=== PATIENT | male | born 1990 | race Caucasian/White ===

== ENCOUNTER 2021-07-04 12:46 | Emergency (ER) | payer SELFPAY ==
[2021-07-05 15:32] LABS: SARS-CoV-2 PCR by NAA Not Detected (NotDetected)
== END 2021-07-04 14:55 | disposition home or self-care (01) ==
LOC: CSHERS 12:46
DX: R05.9 Cough, unspecified (principal); Z20.822 Contact with and (suspected) exposure to COVID-19; F17.210 Nicotine dependence, cigarettes, uncomplicated
CPT/HCPCS: 99283; U0003; U0005